=== PATIENT | female | born 1965 | race African-American/Black ===

== ENCOUNTER 2022-06-11 09:21 | Emergency (ER) | payer OTHER, SELFPAY ==
--- NOTE | ~2022-06-11 | CT_ITS ---
CT head/brain wo con CLINICAL INFORMATION: Reason for Exam seizure possible fall COMPARISON: No prior CT scan available for comparison. TECHNIQUE: Department standard protocol. This CT examination was performed using dose optimization techniques as appropriate, variously including the following: *Automated exposure control *Adjustment of mA and/or kV according to patient size (this includes techniques or standardized protocols for targeted exams where dose is matched to indication/reason for exam; i.e. extremities or head) *Use of iterative reconstruction technique DLP: 1573 mGy-cm FINDINGS: CEREBRAL HEMISPHERES: There is hypoattenuation, encephalomalacia in the posterior right parietal lobe, most likely a sequela of infarct. No mass effect. BRAIN PARENCHYMA: Normal garza-white matter differentiation. SUBDURAL SPACE: No bleed. BASAL GANGLIA AND PINEAL GLAND: Unremarkable VENTRICLES: Symmetric and normal in size. CEREBELLUM AND BRAINSTEM: No space-occupying mass, hemorrhage or acute infarct. CEREBELLOPONTINE ANGLES: No lesion found. ORBITS: No intraorbital mass. VESSELS: Unremarkable SKULL BASE: Unremarkable INCLUDED SINUSES AT SKULL BASE: Clear SKULL AND SKIN: There is extracalvarial subcutaneous hematoma in the posterior left parietal region, roughly measure 4 x 7 cm, underlying skull is intact. No associated intracranial hemorrhage. CT/CT head/brain wo con IMPRESSION: *There is extracalvarial subcutaneous hematoma posterior left parieto-occipital region, no associated skull fracture or intracranial hemorrhage. 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 Indeterminant age. MRI could be utilized for further investigation. No mass effect or associated bleed. (Referring physician staff is being called, to be alerted of the above findings and recommendations.) Bj Hinkle
--- NOTE | 2022-06-11 09:30 | ECG_ITS ---
Test Reason : Seizure Blood Pressure : / mmHG Vent. Rate : 095 BPM Atrial Rate : 095 BPM P-R Int : 128 ms QRS Dur : 084 ms QT Int : 394 ms P-R-T Axes : 061 -21 051 degrees QTc Int : 495 ms Normal sinus rhythm Minimal voltage criteria for LVH, may be normal variant ( R in aVL ) Prolonged QT Abnormal ECG No previous ECGs available Referred By: Donna Calhoun Electronically Signed By:MAYITO DIANE MD
--- NOTE | 2022-06-11 09:31 | ED_ITS ---
HPI - Seizure General Chief Complaint: Seizure Stated Complaint: seizure Time Seen by Provider: 06/11/22 09:23 Source: patient Mode of arrival: EMS Limitations: altered mental status (slightly confused, poor historian) History of Present Illness complaint: seizure Onset (ago): minute(s) (just prior to arrival ) Description of Episode: loss of consciousness and tonic-clonic movement Duration of episode: 1 -: minutes(s) Witnessed: Yes - by Bystander Trauma: No Seizure History: Yes Place: Outdoors Possible Precipitating Event: other (didnt take her seizure med this AM and drank ETOH last night) Associated symptoms: denies other symptoms Treatments prior to arrival: none Related Data Allergies Allergy/AdvReac Type Severity Reaction Status Date / Time No Known Allergies Allergy Verified 06/11/22 09:30 Review of Systems Review of Systems: Constitutional : No Fever, No Chills, No Fatigue ENT/Mouth : No sore throat, No Rhinorrhea Eyes: No Eye Pain, No Swelling, No Redness Cardiovascular : No Chest Pain, No SOB, No Dyspnea on Exertion Respiratory : No Cough, No Sputum Gastrointestinal : No Nausea, No Vomiting, No Diarrhea, No abdominal Pain Genitourinary : No Dysuria, No Urinary Frequency, No Hematuria, Musculoskeletal : No joint pain, No Myalgias, No Joint Swelling Skin : No Skin Lesions, No rash Neuro : No Weakness, No Numbness, No Dizziness, no Headache, pos seizure Psych : No Anxiety/Panic, No Depression Heme/Lymph: No Bruising, No Bleeding,No Lymphadenopathy Endocrine : No Polyuria, No Polydipsia All other systems reviewed and are negative [facility] Past Medical History Attestation statement: The following information was validated with the patient. Medical History ETOH abuse Seizure Social History Social History (Updated 06/11/22 @ 09:33 by Donna Calhoun DO) Alcohol intake: current Alcohol intake frequency: holidays/special occasions only Patient Tobacco Use Status: Tobacco use Unknown Use of substances other than those prescribed or required for medical reasons: No Advance Directives: Yes Advance Directives Information Provided: Yes Advance Directives on File: No Patient : No Physical Exam Vital Signs: Vital Signs: Last Vital Signs Temp 99.0 F 06/11/22 12:26 Pulse 95 06/11/22 12:26 Resp 21 H 08/06/22 12:26 BP 134/83 06/11/22 12:26 Pulse Ox 96 06/11/22 12:26 O2 Del Method 06/11/22 12:26 BMI result Body Mass Index 23.1 Appearance: Alert. Oriented X2. No acute distress. Eyes: Pupils equal, round and reactive to light. ENT: Pharynx normal. Neck: Normal inspection. Neck supple. CVS: Normal heart rate and rhythm. Pulses normal. Respiratory: No respiratory distress. Breath sounds normal. Abdomen: Soft and non-tender. Skin: Skin warm and dry. Normal skin color. Normal skin turgor. Extremities: No lower extremity edema. No calf ttp Neuro: Oriented X 2. No motor deficit. No sensory deficit. Course Course Course Narrative: called [facility] patient is actually on keppra 1500mg BID she has never been on dilantin per her pharmacy patient now c/o headache more coherent has small bump to back of head, will obtain CT head to r/o ICH at baseline, GCS 15 stable for DC, aware she has COVID states she is vaccinated has had a runny nose for many days cannot give me an exact date because of this she is not a candidate for treatment aware of head CT has no deficits I do not suspect acute stroke MDM - Seizure MDM Narrative Medical decision making narrative: 57 yo female hx of seizures on dilantin cannot tell her dose, ETOH abuse - per her friend who was with her she was drinking last night and didn't take her seizure med this AM. She had a GTC seizure her friend caught her there was no head strike - patient is confused to time. Will obtain basic labs, IVF, IV versed and give her her dilantin dose once we find her Rx. Lab Data Result diagrams: 06/11/22 09:57 06/11/22 09:57 Labs: Lab Results 06/11/22 06/11/22 06/11/22 Range/Units 09:57 09:57 09:57 WBC 6.0 (4.8-10.8) X10*3/uL RBC 4.31 (4.20-5.50) X10*6/uL Hgb 12.9 (12.0-16.0) g/dl Hct 37.8 (37.0-47.0) % MCV 87.7 (80.0-98.0) fL MCH 29.9 (27.0-33.0) pg MCHC 34.1 (31.0-35.0) g/dl RDW 12.5 (11.0-16.0) % Plt Count 405 H (160-400) X10*3/uL MPV 8.8 L (9.4-12.3) fL Immature Gran % (Auto) 0.5 H (0.0-0.4) % Neut % (Auto) 64.1 (45-73) % Lymph % (Auto) 26.4 (20-40) % [place] % (Auto) 7.7 (2-11) % Eos % (Auto) 0.8 (0-4) % Baso % (Auto) 0.5 (0-2) % Lymph # (Auto) 1.6 (1.2-4.9) X10*3/uL [place] # (Auto) 0.5 (0.1-1.2) X10*3/uL Eos # (Auto) 0.1 (0.0-0.4) X10*3/uL Baso # (Auto) 0.0 (0.0-0.2) X10*3/uL Abs Immat Gran (auto) 0.03 (0.00-0.03) X10*3/uL Absolute Neuts (auto) 3.8 (2.0-8.3) x10*3/uL Absolute Nucleated RBC 0.000 (0.0-0.012) X10*3/uL Nucleated RBC % (auto) 0.0 (0.0-0.2) /100WBC Sodium 141 (135-145) mmol/L Potassium 4.8 (3.3-5.1) mmol/L Chloride 103 (96-108) mmol/L Carbon Dioxide 20 L (22-29) mmol/L Anion Gap 23 H (12-20) BUN 17 H (9-16) mg/dL Creatinine 0.74 (0.5-1.4) mg/dL Estim Creat Clear Calc 70.6 Estimated GFR > 60 Random Glucose 152 H (60-115) mg/dL Calcium 10.3 H (8.4-10.2) mg/dL Magnesium 1.7 (1.6-2.6) mg/dL Total Bilirubin 0.6 (0.0-1.0) mg/dL Direct Bilirubin 0.2 (0.0-0.5) mg/dL AST 42 H (5-31) U/L ALT 35 H (0-31) U/L Alkaline Phosphatase 97 (39-117) U/L Total Protein 9.0 H (6.5-8.0) g/dL Albumin 5.0 (3.5-5.0) g/dL Phenytoin < 0.5 L* (10.0-20.0) ug/mL Ethyl Alcohol 11 mg/dL COVID-19 ([facility]A) Positive A (Negative) COVID-19 Clin Com See Note ECG Data Attestation: I personally reviewed and interpreted this ECG as follows: ECG interpretation date: 06/11/22 ECG interpretation time: 10:13 Interpretation: Rate: 95 Rhythm: NSR [place]: left , LVH Normal P waves. Normal [place]. Normal QRS complex. ST T wave : no NYLA, normal qTC: prolonged prior studies: no acute ischemia The study has been interpreted contemporaneously by me. . Discharge Plan Discharge Clinical Impression: COVID-19, Alcohol abuse Epileptic seizure Qualifiers: Epilepsy type: unspecified Intractability: not intractable Status epilepticus: without status epilepticus Qualified Code(s): G40.909 - Epilepsy, unspecified, not intractable, without status epilepticus Patient Disposition: Home, Self-Care Instructions: Epilepsy (ED), Abuse of Alcohol (ED), COVID-19 (Coronavirus Disease 2019) (ED) Additional Instructions: return to ED for any worsening symptoms or concerns if you become so short of breath you cannot walk to your bathroom please seek medical care wear a mask and quarantine, protect others you were given keppra while in the ER follow up with your doctor this week
[2022-06-11 09:34] VITALS: BP 130/70; PULSE 101; PULSE 107; RESP 18; TEMP 37.1; O2SAT 98; BMI 23.1
[2022-06-11] MEDS: Midazolam HCl/PF 2 MG/2 ML VIAL 1 MG IVPUSH (09:42)
[2022-06-11] MEDS: 0.9 % Sodium Chloride 500 ML IV (09:43)
[2022-06-11] MEDS: ondansetron HCL 4 MG/2 ML VIAL IVPUSH (09:43)
[2022-06-11 10:07] LABS: MANUAL DIFF FLAG NO
[2022-06-11 10:08] LABS: Basophils Percent Auto 0.5 % (0-2); Eosinophils Absolute Auto 0.1 X10*3/uL (0.0-0.4); Eosinophils Percent Auto 0.8 % (0-4); Hematocrit 37.8 % (37.0-47.0); Hemoglobin 12.9 g/dl (12.0-16.0); Imm Gran Abs Auto 0.03 X10*3/uL (0.00-0.03); Imm Gran Pct Auto 0.5 % (0.0-0.4); Lymphocytes Absolute Auto 1.6 X10*3/uL (1.2-4.9); Lymphocytes Percent Auto 26.4 % (20-40); Mean Corpuscular HGB Conc 34.1 g/dl (31.0-35.0); Mean Corpuscular Hemoglobin 29.9 pg (27.0-33.0); Mean Corpuscular Volume 87.7 fL (80.0-98.0); Mean Platelet Volume 8.8 fL (9.4-12.3); Monocytes Absolute Auto 0.5 X10*3/uL (0.1-1.2); Monocytes Percent Auto 7.7 % (2-11); Neutrophils Absolute Auto 3.8 x10*3/uL (2.0-8.3); Neutrophils Percent Auto 64.1 % (45-73); Platelet Count 405 X10*3/uL (160-400); Red Blood Count 4.31 X10*6/uL (4.20-5.50); Red Cell Distribution Width 12.5 % (11.0-16.0)
[2022-06-11 10:12] VITALS: BP 131/84; PULSE 98; RESP 17
[2022-06-11] MEDS: levETIRAcetam in NaCl (iso-os) 1,500 MG/100 ML PIGGYBACK 400 MG IV (10:20)
[2022-06-11 10:24] LABS: COVID-19 Test Positive (Negative)
[2022-06-11 10:26] LABS: Alanine Aminotransferase 35 U/L (0-31); Alkaline Phosphatase 97 U/L (39-117); Anion Gap 23 (12-20); Aspartate Amino Transferase 42 U/L (5-31); Bilirubin Direct 0.2 mg/dL (0.0-0.5); Bilirubin Total 0.6 mg/dL (0.0-1.0); Blood Urea Nitrogen 17 mg/dL (9-16); Calcium 10.3 mg/dL (8.4-10.2); Carbon Dioxide 20 mmol/L (22-29); Chloride 103 mmol/L (96-108); Creatinine Clr Calc Pharmacy 70.6; Estimated Glomerular Filt Rate > 60; Ethanol 11 mg/dL; Glucose Random 152 mg/dL (60-115); Magnesium 1.7 mg/dL (1.6-2.6); Potassium 4.8 mmol/L (3.3-5.1); Sodium 141 mmol/L (135-145)
[2022-06-11 11:05] VITALS: BP 115/91; PULSE 93; RESP 20; O2SAT 98
[2022-06-11] MEDS: Acetaminophen 325 MG TABLET 650 MG PO (11:09)
[2022-06-11] MEDS: Magnesium Sulfate/H2O 2 GM/50 ML PIGGYBACK IV (11:09)
[2022-06-11 11:12] LABS: Phenytoin Dilantin < 0.5 ug/mL (10.0-20.0)
[2022-06-11 12:26] VITALS: BP 134/83; PULSE 95; RESP 21; TEMP 37.2; O2SAT 96
== END 2022-06-11 14:11 | disposition home or self-care (01) ==
PROVIDERS: Emergency Provider Emergency Medicine
DX: U07.1 COVID-19 (principal); G40.909 Epilepsy, unspecified, not intractable, without status epilepticus; F10.10 Alcohol abuse, uncomplicated; Y90.0 Blood alcohol level of less than 20 mg/100 ml
CPT/HCPCS: 70450; 80048; 80076; 80185; 82077; 83735; 85025; 87635; 93005; 96361; 96365; 96366; 96367; 96375; 99284; 99285; J1953; J2250; J2405; J3475